=== PATIENT | male | born 1990 | race Caucasian/White ===

== ENCOUNTER 2018-04-23 17:23 | Emergency (ER) | payer OTHER ==
[~2018-04-23] VITALS: Ht 188 cm; Wt 117.8 kg
[~2018-04-23 17:23] MED LIST: NOHOMEMEDS
[2018-04-23 20:01] VITALS: BP 122/74
== END 2018-04-23 20:03 | disposition home or self-care (01) ==
LOC: EXP 17:23 → EME 17:23 → EXP 20:03
DX: S81.811A Laceration without foreign body, right lower leg, initial encounter (principal); W29.3XXA Contact with powered garden and outdoor hand tools and machinery, initial encounter; Z23 Encounter for immunization
CPT/HCPCS: 99281; 99283